=== PATIENT | female | born 1990 | race Two or more races ===

== ENCOUNTER 2021-04-11 11:33 | Emergency (ER) | payer OTHER ==
[2021-04-11 11:56] VITALS: BP 149/95; PULSE 99; TEMP 98.3; BMI 23.1
== END 2021-04-11 12:34 | disposition home or self-care (01) ==
LOC: JERFT 11:33
DX: L02.416 Cutaneous abscess of left lower limb (principal)
CPT/HCPCS: 87070; 87186; 87205; 99281-25

== ENCOUNTER 2022-05-12 09:44 | Emergency (ER) | payer OTHER ==
[2022-05-12 10:02] VITALS: BP 129/86; PULSE 80; RESP 18; TEMP 97.9; BMI 21.7
[2022-05-12] MEDS ORDERED: MAG HYDROX/AL HYDROX/SIMETH -MYLANTA- ORAL SUSPENSION PO ONE (10:41)
[2022-05-12] MEDS ORDERED: FAMOTIDINE 20 MG TABLET PO ONE (10:41)
[2022-05-12] MEDS ORDERED: FAMOTIDINE 20 MG TABLET ONE (10:47)
[2022-05-12] MEDS ORDERED: MAG HYDROX/AL HYDROX/SIMETH 30 ML UNIT-DOSE CUP ONE (10:47)
[2022-05-12 11:35] LABS: BASO % 0.2 % (0-2.0); EOS % 1.2 % (0-4.5); HEMATOCRIT 37.8 % (32.4-45.2); HEMOGLOBIN 12.9 GM/dL (10.7-15.3); LYMPH % 33.8 % (8-40); MEAN PLT VOLUME 8.4 fl (7.5-11.1); MONO % 13.5 % (3.8-10.2); NEUT % 51.3 % (42.8-82.8); PLATELET COUNT 293 10^3/uL (134-434); RBC 4.29 M/mm3 (3.60-5.2); RDW 12.7 % (11.6-15.6); WHITE BLOOD COUNT 3.7 K/mm3 (4.0-10.0)
[2022-05-12 11:39] LABS: EPI CELLS >36 /uL (0-25.1); HCG,QUALITATIVE URINE Negative; HYALINE CASTS 1 /uL (0-3.1); URINE APPEARANCE CLOUDY; URINE BACTERIA 959 /uL (0-1359); URINE BILIRUBIN NEGATIVE (NEGATIVE); URINE COLOR YELLOW; URINE GLUCOSE (UA) NEGATIVE (NEGATIVE); URINE KETONE TRACE (NEGATIVE); URINE LEUK ESTERASE NEGATIVE (NEGATIVE); URINE NITRITE NEGATIVE (NEGATIVE); URINE PROTEIN TRACE (NEGATIVE); URINE WBC 19 /uL (0-25.8)
[2022-05-12 11:43] LABS: URINE RBC 245 /uL (0-23.9)
[2022-05-12 11:58] LABS: CALCIUM 8.8 mg/dL (8.5-10.1)
[2022-05-12 11:59] LABS: ALBUMIN 3.5 g/dl (3.4-5.0)
[2022-05-12 12:02] LABS: CREATININE 0.7 mg/dL (0.55-1.3)
[2022-05-12 12:03] LABS: BILIRUBIN,TOTAL 0.2 mg/dL (0.2-1)
== END 2022-05-12 17:00 | disposition home or self-care (01) ==
LOC: JER 09:44
DX: K82.8 Other specified diseases of gallbladder (principal); K52.9 Noninfective gastroenteritis and colitis, unspecified
CPT/HCPCS: 36415; 76705-TC; 80053; 81003; 83690; 84703; 85025; 99284-25

== ENCOUNTER 2023-04-19 06:10 | Inpatient (IN) | payer OTHER ==
[2023-04-16 15:12] VITALS: BMI 21.7
[2023-04-19] MEDS ORDERED: ACETAMINOPHEN INJECTION 100 ML IVPB ONE (10:04)
[2023-04-19] MEDS ORDERED: ACETAMINOPHEN 1000 MG/100 ML BAG IVPB ONE (11:00)
[2023-04-19] MEDS ORDERED: ROPIVACAINE HCL 0.5% 30ML VIAL ONE (11:15)
[2023-04-19] MEDS ORDERED: MIDAZOLAM HCL 2 MG/2 ML SINGLE DOSE VIAL ONE (11:17)
[2023-04-19] MEDS ORDERED: LIDOCAINE HCL/PF 2% SDV 5ML VIAL ONE (11:17)
[2023-04-19] MEDS ORDERED: FENTANYL CITRATE/PF 50 MCG/ML VIAL ONE ×9 (11:17→16:01)
[2023-04-19] MEDS ORDERED: ROCURONIUM BROMIDE 50 MG/5 ML SYRINGE ONE (11:17)
[2023-04-19] MEDS ORDERED: PROPOFOL 20 ML ONE ×2 (11:17→14:15)
[2023-04-19] MEDS ORDERED: SODIUM CHLORIDE 0.9% P/F 10 ML VIAL IJ ONE (12:08)
[2023-04-19] MEDS ORDERED: ceFAZolin SODIUM 1 GM VIAL ONE ×2 (12:08→12:14)
[2023-04-19] MEDS ORDERED: ceFAZolin SODIUM 1 GM VIAL IVPB ONE (12:09)
[2023-04-19] MEDS ORDERED: DEXAMETHASONE SOD PHOSPHATE 4 MG/1 ML VIAL ONE (12:16)
[2023-04-19] MEDS ORDERED: ONDANSETRON 4 MG/2 ML VIAL ONE (12:16)
[2023-04-19] MEDS ORDERED: TRANEXAMIC ACID 1000 MG/10 ML VIAL IVPUSH ONE (12:30)
[2023-04-19] MEDS ORDERED: SUGAMMADEX SODIUM 200 MG/2 ML VIAL ONE (14:01)
[2023-04-19] MEDS ORDERED: ONDANSETRON 4 MG/2 ML VIAL IVPUSH PRN ×2 (14:59→15:07)
[2023-04-19] MEDS ORDERED: PROMETHAZINE HCL 25 MG/1 ML VIAL IVPB PRN (14:59)
[2023-04-19] MEDS ORDERED: LACTATED RINGERS SOLUTION 1,000 ML IV SCH (15:00)
[2023-04-19] MEDS ORDERED: DOCUSATE SODIUM 100 MG CAPSULE (FP) PO PRN (15:07)
[2023-04-19] MEDS ORDERED: SIMETHICONE 80 MG TAB.CHEW (FP) PO PRN (15:07)
[2023-04-19] MEDS ORDERED: oxyCODONE HCL 5 MG TABLET PO PRN (15:07)
[2023-04-19] MEDS ORDERED: BISACODYL 5 MG TABLET.DR (FP) PO PRN (15:07)
[2023-04-19] MEDS ORDERED: ACETAMINOPHEN 500 MG TABLET (FP) PO SCH (15:45)
[2023-04-19 18:56] LABS: HEMATOCRIT 35.9 % (32.4-45.2); HEMOGLOBIN 11.9 GM/dL (10.7-15.3); MCH 28.2 pg (25.7-33.7); MCHC 33.2 g/dl (32.0-36.0); MEAN CELL VOLUME 84.9 fl (80-96); MEAN PLT VOLUME 8.6 fl (7.5-11.1); PLATELET COUNT 282 10^3/uL (134-434); RBC 4.23 M/mm3 (3.60-5.2); RDW 12.7 % (11.6-15.6); WHITE BLOOD COUNT 11.8 K/mm3 (4.0-10.0)
[2023-04-19 19:46] LABS: CALCIUM 8.5 mg/dL (8.5-10.1)
[2023-04-19 19:47] LABS: BLOOD UREA NITROGEN 8.5 mg/dL (7-18)
[2023-04-19 19:50] LABS: CREATININE 0.8 mg/dL (0.55-1.3)
[2023-04-19] MEDS: ACETAMINOPHEN 500 MG TABLET (FP) PO SCH (20:51)
[2023-04-19] MEDS: INDOMETHACIN 25 MG CAPSULE PO SCH ×2 (21:44→22:14)
[2023-04-19 22:22] VITALS: RESP 18
[2023-04-19] MEDS: oxyCODONE HCL 5 MG TABLET PO PRN (22:32)
[2023-04-20] MEDS: ACETAMINOPHEN 500 MG TABLET (FP) PO SCH ×3 (03:23→19:51)
[2023-04-20] MEDS: INDOMETHACIN 25 MG CAPSULE PO SCH ×3 (04:16→16:44)
[2023-04-20 07:55] LABS: HEMOGLOBIN 10.7 GM/dL (10.7-15.3); MCH 28.5 pg (25.7-33.7); MCHC 33.4 g/dl (32.0-36.0); MEAN CELL VOLUME 85.5 fl (80-96); MEAN PLT VOLUME 8.6 fl (7.5-11.1); PLATELET COUNT 243 10^3/uL (134-434); RBC 3.75 M/mm3 (3.60-5.2); RDW 12.6 % (11.6-15.6); WHITE BLOOD COUNT 8.7 K/mm3 (4.0-10.0)
[2023-04-20 08:36] LABS: POTASSIUM 3.7 mmol/L (3.5-5.1)
[2023-04-20 08:37] LABS: CALCIUM 8.1 mg/dL (8.5-10.1)
[2023-04-20 08:38] LABS: BLOOD UREA NITROGEN 7.6 mg/dL (7-18)
[2023-04-20 08:41] LABS: CREATININE 0.6 mg/dL (0.55-1.3)
[2023-04-21] MEDS: ACETAMINOPHEN 500 MG TABLET (FP) PO SCH ×2 (06:07→11:45)
[2023-04-21] MEDS: oxyCODONE HCL 5 MG TABLET PO PRN (08:51)
[2023-04-21 10:25] VITALS: BP 125/86; PULSE 90; TEMP 98.1
== END 2023-04-21 12:56 | disposition home or self-care (01) | DRG 519 ==
LOC: J2C 06:10 → J3W 18:25
PROVIDERS: ADMIT Obstetrics & Gynecology; ATTEND Obstetrics & Gynecology
PROC: 0UB00ZZ Excision of Right Ovary, Open Approach (ICD-10-PCS; 2023-04-19)
PROC: 0UB90ZZ Excision of Uterus, Open Approach (ICD-10-PCS; principal; 2023-04-19 12:00)
DX: D25.9 Leiomyoma of uterus, unspecified (principal); N83.201 Unspecified ovarian cyst, right side
CPT/HCPCS: 36415; 80048; 80053; 81025; 84703; 85025; 85027; 85610; 86850; 86900; 86901; 88305-TC; 94010; 94760

== ENCOUNTER 2024-12-20 19:29 | Emergency (ER) | payer OTHER ==
[2024-12-20 19:41] VITALS: TEMP 98.5; BMI 22.6
[2024-12-20 20:30] LABS: EPI CELLS 28 /uL (0-25.1); HYALINE CASTS 0 /uL (0-3.1); PH,URINE 6.5 (5.0-8.0); URINE APPEARANCE CLEAR; URINE BACTERIA 728 /uL (0-1359); URINE BILIRUBIN NEGATIVE (NEGATIVE); URINE COLOR YELLOW; URINE GLUCOSE (UA) NEGATIVE (NEGATIVE); URINE KETONE TRACE (NEGATIVE); URINE LEUK ESTERASE NEGATIVE (NEGATIVE); URINE NITRITE NEGATIVE (NEGATIVE); URINE PROTEIN NEGATIVE (NEGATIVE); URINE RBC 69 /uL (0-23.9); URINE WBC 8 /uL (0-25.8)
[2024-12-20] MEDS ORDERED: CEPHALEXIN MONOHYDRATE 500 MG CAPSULE (UD) ONE (22:34)
[2024-12-20] MEDS: CEPHALEXIN MONOHYDRATE 500 MG CAPSULE (UD) PO ONE (22:37)
[2024-12-20 22:52] VITALS: BP 127/78; PULSE 85; RESP 18
[2024-12-22 21:22] LABS: HIV INTERPRETATION NEGATIVE (NEGATIVE)
[2024-12-23 22:05] LABS: HCV DIAGNOSTIC IN-HOUSE W/RFLX NON-REACTIVE (NONREACTIVE)
== END 2024-12-20 22:54 | disposition home or self-care (01) ==
LOC: JER 19:29
DX: O09.511 Supervision of elderly primigravida, first trimester (principal); O20.0 Threatened abortion; O26.891 Other specified pregnancy related conditions, first trimester; R10.2 Pelvic and perineal pain; Z3A.01 Less than 8 weeks gestation of pregnancy
CPT/HCPCS: 36415; 76817-TC; 81003; 84702; 86803; 87389; 99284-25